=== PATIENT | male | born 1995 | race African-American/Black ===

== ENCOUNTER 2019-10-30 08:53 | Emergency (ER) | payer MEDICAID ==
[~2019-10-30] VITALS: Ht 177.8 cm; Wt 66.0 kg
[2019-10-30] MEDS ORDERED: KETOROLAC 30MG/ML VIAL IV STA (09:02)
[2019-10-30] MEDS ORDERED: ONDANSETRON HCL 4MG/2ML INJ IV STA ×2 (09:02→11:36)
[2019-10-30] MEDS ORDERED: SODIUM CHLORIDE 0.9% 1,000 ML IV ONE (09:02)
[2019-10-30] MEDS ORDERED: MAGNESIUM/ALUMINUM HYDROXIDE/SIMETHICONE 30ML UDC PO STA (09:02)
[2019-10-30 10:10] LABS: BASOPHILS % 0.4 % (0.0-2.0); EOSINOPHILS % 1.4 % (0.0-5.0); HEMATOCRIT. 43.8 % (42.0-52.0); HEMOGLOBIN. 14.6 g/dL (14.0-18.0); LYMPHOCYTES % 38.1 % (20.0-50.0); MEAN CORPUSCULAR HEMOGLOBIN 32.4 pg (28.0-32.0); MEAN CORPUSCULAR VOLUME 96.7 fL (80.0-94.0); MEAN PLATELET VOLUME 7.6 fl (7.4-10.4); MONOCYTES % 9.9 % (2.0-8.0); NEUTROPHILS % 50.2 % (40.0-76.0); PLATELET 237 x1000/uL (130-400); RED BLOOD CELL COUNT 4.53 mill/uL (4.7-6.1)
[2019-10-30 10:16] LABS: CHLORIDE 109 mEq/L (98-107)
[2019-10-30 10:19] LABS: PROTHROMBIN TIME 10.9 sec (9.6-11.0)
[2019-10-30] MEDS ORDERED: MORPHINE SULFATE 4 MG/ML CPJ (NOT FOR IM USE) IV STA (11:36)
[2019-10-30] MEDS ORDERED: LORAZEPAM 2MG/ML CPJ IV ONE (11:45)
[2019-10-30 13:40] VITALS: BP 101/69
== END 2019-10-30 13:58 | disposition home or self-care (01) ==
LOC: ER 09:12
DX: R10.33 Periumbilical pain (principal); R11.2 Nausea with vomiting, unspecified; J45.909 Unspecified asthma, uncomplicated
CPT/HCPCS: 36415; 74176; 80053; 83690; 85025; 85610; 93005; 96361; 96374; 96375; 96376; 99285; J1885; J2060; J2270; J2405; J7030

== ENCOUNTER 2019-10-30 14:09 | Emergency (ER) | payer MEDICAID ==
[~2019-10-30] VITALS: Ht 177.8 cm; Wt 73.0 kg
[2019-10-30] MEDS ORDERED: ONDANSETRON 4MG ODT PO ONE (17:15)
[2019-10-30 18:27] VITALS: BP 149/65
== END 2019-10-30 17:58 | disposition home or self-care (01) ==
LOC: ER 14:21
DX: R11.2 Nausea with vomiting, unspecified (principal); J45.909 Unspecified asthma, uncomplicated
CPT/HCPCS: 99285

== ENCOUNTER 2021-01-31 23:38 | Emergency (ER) | payer MEDICAID ==
[~2021-01-31] VITALS: Ht 177.8 cm; Wt 78.0 kg
[2021-02-01] MEDS ORDERED: LORAZEPAM 1MG TABLET PO ONE
[2021-02-01] MEDS ORDERED: ONDANSETRON 4MG ODT PO ONE (00:15)
[2021-02-01] MEDS ORDERED: KETOROLAC 60MG/2ML VIAL IM ONE (00:15)
[2021-02-01] MEDS ORDERED: LORAZEPAM 2MG/ML CPJ IV ONE (00:30)
[2021-02-01] MEDS ORDERED: ONDANSETRON HCL 4MG/2ML INJ IV ONE (00:30)
[2021-02-01] MEDS ORDERED: KETOROLAC 30MG/ML VIAL IV ONE (00:30)
[2021-02-01 01:56] VITALS: BP 90/55
[2021-02-01] MEDS ORDERED: IBUP-2030 MT (02:24)
== END 2021-02-01 03:49 | disposition home or self-care (01) ==
LOC: ER 23:38
DX: S09.8XXA Other specified injuries of head, initial encounter (principal); S40.012A Contusion of left shoulder, initial encounter; S60.212A Contusion of left wrist, initial encounter; V49.59XA Passenger injured in collision with other motor vehicles in traffic accident, initial encounter; Y93.89 Activity, other specified; Y92.89 Other specified places as the place of occurrence of the external cause; Y99.8 Other external cause status; J45.909 Unspecified asthma, uncomplicated; S93.491A Sprain of other ligament of right ankle, initial encounter
CPT/HCPCS: 70450; 71045; 72170; 73030; 73110; 73610; 99284; J1885; J2060; J2405; Q0162

== ENCOUNTER 2021-02-08 11:30 | Emergency (ER) | payer MEDICAID ==
[~2021-02-08] VITALS: Ht 175.3 cm; Wt 80.0 kg
[~2021-02-08 11:30] MED LIST: IBUP-2030 MT
[2021-02-08] MEDS ORDERED: SODIUM CHLORIDE 0.9% 1,000 ML IV ONE (12:15)
[2021-02-08] MEDS ORDERED: MORPHINE SULFATE 4 MG/ML CPJ (NOT FOR IM USE) IV STA (12:15)
[2021-02-08] MEDS ORDERED: LORAZEPAM 2MG/ML CPJ IV ONE ×2 (12:15→13:45)
[2021-02-08] MEDS ORDERED: ONDANSETRON HCL 4MG/2ML INJ IV STA (12:15)
[2021-02-08 13:59] LABS: BASOPHILS % 0.5 % (0.0-2.0); EOSINOPHILS % 0.4 % (0.0-5.0); HEMATOCRIT. 46.7 % (42.0-52.0); HEMOGLOBIN. 15.5 g/dL (14.0-18.0); LYMPHOCYTES % 24.5 % (20.0-50.0); MEAN CORPUSCULAR HEMOGLOBIN 30.8 pg (28.0-32.0); MEAN PLATELET VOLUME 7.6 fl (7.4-10.4); MONOCYTES % 5.1 % (2.0-8.0); NEUTROPHILS % 69.5 % (40.0-76.0); PLATELET 275 x1000/uL (130-400); RED BLOOD CELL COUNT 5.03 mill/uL (4.7-6.1); RED CELL DISTRIBUTION WIDTH 12.8 % (11.6-14.6)
[2021-02-08 14:00] LABS: CHLORIDE 109 mEq/L (98-107)
[2021-02-08 15:13] LABS: CLARITY URINE CLEAR (CLEAR); COLOR URINE YELLOW (YELLOW); KETONES URINE NEGATIVE (NEGATIVE); LEUKOCYTE ESTERASE URINE NEGATIVE (NEGATIVE); NITRITE URINE NEGATIVE (NEGATIVE); OCCULT BLOOD URINE NEGATIVE (NEGATIVE); PH URINE >=9.0 (4.5-8.0); PROTEIN URINE TRACE (NEGATIVE); SPECIFIC GRAVITY URINE 1.025 (1.005-1.030)
[2021-02-08 15:23] LABS: OPIATES URINE SCREEN PRESUMTIVE POSITIVE (NEGATIVE); PHENCYCLIDINE URINE SCREEN NEGATIVE (NEGATIVE)
[2021-02-08 15:24] LABS: *AMPHETAMINES SCREEN URINE NEGATIVE (NEGATIVE); *BARBITURATES SCREEN URINE NEGATIVE (NEGATIVE); *BENZODIAZEPINES SCREEN URINE NEGATIVE (NEGATIVE); *COCAINE SCREEN URINE NEGATIVE (NEGATIVE); CANNABINOID URINE SCREEN PRESUMTIVE POSITIVE (NEGATIVE); METHADONE URINE SCREEN NEGATIVE (NEGATIVE)
[2021-02-08] MEDS ORDERED: ONDA4TAB11 PO (15:28)
[2021-02-08] MEDS ORDERED: OMEP20CA14 MT (15:28)
[2021-02-08] MEDS ORDERED: IBUP-2030 MT (15:28)
[2021-02-08] MEDS ORDERED: HYDROCODONE/ACETAMINOPHEN 5/325MG TABLET PO ONE (16:00)
[2021-02-08 16:02] VITALS: BP 107/69
[2021-02-09] MEDS ORDERED: TRAM50TA3 MT (16:43)
== END 2021-02-08 17:14 | disposition home or self-care (01) ==
LOC: ER 11:40
DX: R10.13 Epigastric pain (principal); R11.2 Nausea with vomiting, unspecified; R51.9 Headache, unspecified; M54.50 Low back pain, unspecified; F41.9 Anxiety disorder, unspecified; F32.A Depression, unspecified; F12.10 Cannabis abuse, uncomplicated; Z79.899 Other long term (current) drug therapy; V49.88XA Car occupant (driver) (passenger) injured in other specified transport accidents, initial encounter; Y93.89 Activity, other specified; Y92.89 Other specified places as the place of occurrence of the external cause; Y99.8 Other external cause status
CPT/HCPCS: 36415; 70450; 71045; 74176; 80053; 80305; 80320; 81003; 83690; 85025; 96361; 96374; 96375; 99285; J2060; J2270; J2405; J7030; Z7610; G0480

== ENCOUNTER 2021-02-09 12:41 | Emergency (ER) | payer MEDICAID ==
[~2021-02-09] VITALS: Ht 182.9 cm; Wt 85.0 kg
[~2021-02-09 12:41] MED LIST changes: +OMEP20CA14 MT; +ONDA4TAB11 PO
[2021-02-09 12:56] VITALS: BP_SYST 94
[2021-02-09] MEDS ORDERED: LORAZEPAM 1MG TABLET PO ONE ×2 (13:00→16:30)
[2021-02-09] MEDS ORDERED: ONDANSETRON 4MG ODT PO ONE (13:00)
[2021-02-09 15:42] LABS: BASOPHILS % 0.4 % (0.0-2.0); EOSINOPHILS % 0.3 % (0.0-5.0); HEMATOCRIT. 43.2 % (42.0-52.0); HEMOGLOBIN. 15.1 g/dL (14.0-18.0); LYMPHOCYTES % 24.7 % (20.0-50.0); MEAN CORPUSCULAR HEMOGLOBIN 32.6 pg (28.0-32.0); MEAN CORPUSCULAR VOLUME 93.3 fL (80.0-94.0); MEAN PLATELET VOLUME 7.3 fl (7.4-10.4); MONOCYTES % 4.9 % (2.0-8.0); NEUTROPHILS % 69.7 % (40.0-76.0); PLATELET 285 x1000/uL (130-400); RED BLOOD CELL COUNT 4.63 mill/uL (4.7-6.1); RED CELL DISTRIBUTION WIDTH 12.8 % (11.6-14.6)
[2021-02-09 15:45] LABS: CLARITY URINE CLEAR (CLEAR); COLOR URINE YELLOW (YELLOW); KETONES URINE NEGATIVE (NEGATIVE); LEUKOCYTE ESTERASE URINE NEGATIVE (NEGATIVE); NITRITE URINE NEGATIVE (NEGATIVE); OCCULT BLOOD URINE NEGATIVE (NEGATIVE); PH URINE 7.5 (4.5-8.0); PROTEIN URINE NEGATIVE (NEGATIVE); UROBILINOGEN URINE 0.2 E.U./dL (0.2-1.0)
[2021-02-09 15:52] LABS: CHLORIDE 111 mEq/L (98-107)
[2021-02-09 16:25] LABS: *COCAINE SCREEN URINE NEGATIVE (NEGATIVE); METHADONE URINE SCREEN NEGATIVE (NEGATIVE)
[2021-02-09 16:26] LABS: *AMPHETAMINES SCREEN URINE NEGATIVE (NEGATIVE); *BARBITURATES SCREEN URINE NEGATIVE (NEGATIVE); *BENZODIAZEPINES SCREEN URINE NEGATIVE (NEGATIVE); CANNABINOID URINE SCREEN PRESUMTIVE POSITIVE (NEGATIVE); OPIATES URINE SCREEN NEGATIVE (NEGATIVE); PHENCYCLIDINE URINE SCREEN NEGATIVE (NEGATIVE)
[2021-02-09] MEDS ORDERED: ZIPRASIDONE MESYLATE 20MG/VIAL IM ONE (16:30)
[2021-02-09] MEDS ORDERED: KETOROLAC 60MG/2ML VIAL IM ONE (16:30)
[2021-02-09] MEDS ORDERED: TRAM50TA3 MT (16:43)
== END 2021-02-09 17:31 | disposition home or self-care (01) ==
LOC: ER 12:41
DX: R07.89 Other chest pain (principal); R10.84 Generalized abdominal pain; M79.18 Myalgia, other site; F41.8 Other specified anxiety disorders; F60.9 Personality disorder, unspecified; Z87.828 Personal history of other (healed) physical injury and trauma
CPT/HCPCS: 36415; 71045; 80053; 80305; 81003; 83880; 84484; 85025; 93005; 99285; Q0162

== ENCOUNTER 2021-04-12 12:46 | Emergency (ER) | payer MEDICAID ==
[~2021-04-12] VITALS: Ht 177.8 cm; Wt 73.0 kg
[~2021-04-12 12:46] MED LIST changes: +TRAM50TA3 MT
[2021-04-12 13:14] VITALS: BP 106/62
[2021-04-12] MEDS ORDERED: ONDANSETRON HCL 4MG/2ML INJ IV STA (13:37)
[2021-04-12] MEDS ORDERED: MAGNESIUM/ALUMINUM HYDROXIDE/SIMETHICONE 30ML UDC PO STA (13:37)
[2021-04-12] MEDS ORDERED: FAMOTIDINE 20MG/2ML VIAL IV ONE (13:45)
[2021-04-12 14:53] LABS: BASOPHILS % 0.4 % (0.0-2.0); EOSINOPHILS % 0.1 % (0.0-5.0); HEMATOCRIT. 43.5 % (42.0-52.0); HEMOGLOBIN. 14.4 g/dL (14.0-18.0); LYMPHOCYTES % 11.5 % (20.0-50.0); MEAN CORPUSCULAR VOLUME 93.6 fL (80.0-94.0); MEAN PLATELET VOLUME 7.3 fl (7.4-10.4); MONOCYTES % 4.2 % (2.0-8.0); NEUTROPHILS % 83.8 % (40.0-76.0); PLATELET 292 x1000/uL (130-400); RED BLOOD CELL COUNT 4.64 mill/uL (4.7-6.1); RED CELL DISTRIBUTION WIDTH 13.5 % (11.6-14.6)
[2021-04-12 14:54] LABS: CHLORIDE 108 mEq/L (98-107)
[2021-04-12 14:57] LABS: ETHANOL BLOOD < 10 mg/dL
== END 2021-04-12 19:33 | disposition home or self-care (01) ==
LOC: ER 12:54
DX: R11.2 Nausea with vomiting, unspecified (principal); J02.9 Acute pharyngitis, unspecified; F12.10 Cannabis abuse, uncomplicated; F41.9 Anxiety disorder, unspecified; Z79.899 Other long term (current) drug therapy
CPT/HCPCS: 36415; 71045; 74176; 80053; 80320; 83690; 85025; 93005; 96374; 96375; 99285; J2405; J3490; Z7610; G0480

== ENCOUNTER 2024-11-13 15:32 | Emergency (ER) | payer OTHER ==
[~2024-11-13] VITALS: Ht 172.7 cm; Wt 60.0 kg
[~2024-11-13 15:32] MED LIST changes: +MAG355OR21 MT; +ONDA-239 PO; -ONDA4TAB11 PO
[2024-11-13 16:12] VITALS: O2SAT 100
[2024-11-13] MEDS: CYCLOBENZAPRINE 10MG TABLET PO STA (17:08)
[2024-11-13] MEDS ORDERED: CYCL10TA21 MT (17:10)
[2024-11-13] MEDS ORDERED: CELE100C MT (17:10)
[2024-11-13 17:38] VITALS: BP 102/65; PULSE 88; RESP 18; TEMP 36.6; O2SAT 100
== END 2024-11-13 17:38 | disposition home or self-care (01) ==
LOC: ER 15:32
DX: S13.4XXA Sprain of ligaments of cervical spine, initial encounter (principal); S29.012A Strain of muscle and tendon of back wall of thorax, initial encounter; Z79.1 Long term (current) use of non-steroidal anti-inflammatories (NSAID); Z79.899 Other long term (current) drug therapy; V43.52XA Car driver injured in collision with other type car in traffic accident, initial encounter; Y93.89 Activity, other specified; Y92.410 Unspecified street and highway as the place of occurrence of the external cause; Y99.8 Other external cause status
CPT/HCPCS: 99283

== ENCOUNTER 2024-11-24 22:03 | Emergency (ER) | payer OTHER ==
[~2024-11-24] VITALS: Ht 182.9 cm; Wt 77.0 kg
[~2024-11-24 22:03] MED LIST changes: +CELE100C MT; +CYCL10TA21 MT
[2024-11-24 22:14] VITALS: TEMP 37; O2SAT 99
[2024-11-24 23:55] VITALS: BP 110/74; PULSE 77; RESP 16
[2024-11-24] MEDS: KETOROLAC 15MG/ML VIAL IM ONE (23:55)
[2024-11-25] MEDS ORDERED: PHEN51CR14 RC (01:14)
[2024-11-25] MEDS ORDERED: HYDR-4001 MT (01:14)
[2024-11-25] MEDS ORDERED: ACYC-58 MT (01:14)
== END 2024-11-25 02:06 | disposition home or self-care (01) ==
LOC: ER 22:03
DX: K64.4 Residual hemorrhoidal skin tags (principal); Z79.899 Other long term (current) drug therapy
CPT/HCPCS: 99283; 96372; J1885